=== PATIENT | female | born 1995 | race Caucasian/White ===

== ENCOUNTER 2016-08-13 21:23 | Emergency (ER) | payer OTHER ==
[2016-08-13 21:19] LABS: INFLUENZA A POS (NEG); INFLUENZA B NEG (NEG)
[~2016-08-13 21:23] MED LIST: ALBUTEROL17 GM INH; ALBUTEROL20 ml INH; AMOXICILLIN PO; AMOXICILLIN500 M1 PO; AMOXICILLIN875 MG PO; BENZONATATE PO; CLARITIN10 M1 PO; CLARITIN10 MG PO; DIMETAPP120 ML PO; FLONASE 0.05% N16 G1 INH; IBUPROFEN PO; LEXAPRO PO; NO MEDICATIONS; PHENERGAN/CODEIN5 ML DOB; PHENERGAN/CODEINE PO; PREDNISONE PO; PRENATA CHEWAB1 EACH PO; ROBAXIN500 MG PO; ROBITUSSIN A-C-S1 ML PO; ROBITUSSIN AC PO; ROBITUSSIN COU118 M6 PO; ROBITUSSIN-PE1 ML PO; SUDAFED30 M1 PO; TAMIFLU75 M1 PO; VOLTAREN75 MG PO; ZITHROMAX PO; ZITHROMAX1 G/PKT PO; ZOFRAN ODT4 MG PO; ZPAK; ZYRTEC; ZYRTEC5 M1 PO; ZYRTEC5 MG
== END 2016-08-13 21:37 | disposition home or self-care (01) ==
LOC: SED 21:23
PROVIDERS: Emergency Medicine
DX: J10.1 Influenza due to other identified influenza virus with other respiratory manifestations (principal); F17.200 Nicotine dependence, unspecified, uncomplicated
CPT/HCPCS: 87804; 99282

== ENCOUNTER 2016-11-02 20:09 | Emergency (ER) | payer OTHER ==
[2016-11-02 20:46] LABS: URINE SOURCE CLEAN CATCH
[2016-11-02 20:51] LABS: URINE APPEARANCE CLEAR; URINE BILIRUBIN NEG (NEG); URINE BLOOD NEG (NEG); URINE COLOR DK YELLOW; URINE GLUCOSE NEG (NORM); URINE KETONE NEG (NEG); URINE LEUKOCYTE ESTERASE NEG (NEG); URINE NITRATE NEG (NEG); URINE PH 5.5 (5-8); URINE PROTEIN NEG (NEG); URINE SPECIFIC GRAVITY >=1.030 (1.003-1.035); URINE UROBILINOGEN 0.2 MG/DL (NORM)
[2016-11-02 20:57] LABS: MICRO INDICATED? NO
[2016-11-05 21:27] LABS: CHLAMYDIA TRACH Not Detected (Not Detected); N GONOR Not Detected (Not Detected)
== END 2016-11-02 21:21 | disposition home or self-care (01) ==
LOC: SED 20:09
PROVIDERS: Physician Assistant
DX: N89.8 Other specified noninflammatory disorders of vagina (principal); G89.29 Other chronic pain; R10.2 Pelvic and perineal pain; F41.9 Anxiety disorder, unspecified; F32.9 Major depressive disorder, single episode, unspecified; F17.200 Nicotine dependence, unspecified, uncomplicated; Z79.899 Other long term (current) drug therapy
CPT/HCPCS: 81003; 84703; 87210; 87220; 87491; 87591; 87808; 87905; 99284

== ENCOUNTER 2016-12-14 09:13 | Emergency (ER) | payer OTHER ==
--- NOTE | ~2016-12-14 | CR72 ---
[facility]. [facility] A Service of [facility] & [facility] RADIOLOGY TEXT RESULTS PATIENT: GEORGETTE HUTTON LOCATION: SED : [birth year] UNIT #: [id number] AGE: [address]: Angel Mcgregor MD SEX: F ORDER DR: [id number] [address] [address] [id number] E MR#: [id number] Acc #: [id number] NAME: GEORGETTE HUTTON : 1995 SEX: F STUDY DATE/TIME: 12/14/2016 UNIT: SED ROOM: STUDY DESCRIPTION: CR Chest Single View Portable Attending Physician: Angel Mcgregor M.D. Ordering Physician: Angel Mcgregor M.D. MEDICAL IMAGING REPORT This report is preliminary unless electronic signature is present. EXAM Chest portable 12/14/2016 1203 hours HISTORY 21-year-old with cough and left-sided chest pain with headache today. COMPARISON 11/01/2014. FINDINGS Single upright portable view demonstrates normal cardiac, mediastinal and hilar contours. The lungs are clear. There are no effusions. IMPRESSION Slightly low lung volumes with large body habitus. No acute cardiopulmonary findings. Dictated by... Jayla Chavez M.D. THIS IS AN ELECTRONICALLY VERIFIED REPORT Jayla Chavez M.D. at 12/15/2016 9:48 AM ALESSANDRA/ol TD: 12/14/2016 22:12 JOB #: [id number] MEDICAL IMAGING REPORT Page 1 of 1
[2016-12-14 10:58] LABS: BASOPHIL# 0.1 X10e3 (0-0.3); BASOPHIL% 0.5 % (0-2.5); EOSINOPHIL# 0.3 X10e3 (0-0.7); EOSINOPHIL% 2.6 % (0.0-7.0); HEMATOCRIT 44.9 % (35.0-45.0); HEMOGLOBIN 15.4 gm/dL (12.0-16.0); LYMPHOCYTE# 2.2 X10e3 (1.0-3.5); LYMPHOCYTE% 17.8 % (17.0-45.0); MEAN CELL VOLUME 86.5 FL (83-96); MEAN CORPUSCULAR HEMOGLOBIN 29.5 PG (28-34); MEAN CORPUSCULAR HGB CONC 34.2 g/dL (30-36); MEAN PLATELET VOLUME 9.4 FL (6.5-11.5); MONOCYTE# 0.9 X10e3 (0-1.0); NEUTROPHIL# 9.1 X10e3 (1.5-7.1); NEUTROPHIL% 72.1 % (40-75); PLATELET COUNT 198 X10e3 (140-420); RED CELL DISTRIBUTION WIDTH 13.3 % (11.0-15.5); WHITE BLOOD COUNT 12.6 X10e3 (4.0-10.5)
[2016-12-14 11:00] LABS: URINE SOURCE CLEAN CATCH
[2016-12-14 11:01] LABS: INFLUENZA A NEG (NEG); INFLUENZA B NEG (NEG)
[2016-12-14 11:05] LABS: URINE APPEARANCE CLEAR; URINE BILIRUBIN NEG (NEG); URINE BLOOD NEG (NEG); URINE COLOR YELLOW; URINE GLUCOSE NEG (NORM); URINE KETONE NEG (NEG); URINE LEUKOCYTE ESTERASE TRACE (NEG); URINE NITRATE NEG (NEG); URINE PH 5.5 (5-8); URINE PROTEIN NEG (NEG); URINE SPECIFIC GRAVITY 1.025 (1.003-1.035); URINE UROBILINOGEN 0.2 MG/DL (NORM)
[2016-12-14 11:06] LABS: MICRO INDICATED? YES
[2016-12-14 11:22] LABS: CULTURE INDICATED? NO; URINE BACTERIA NEG (NEG); URINE RBC 0-2 /[HPF] (0-2); URINE WBC 0-2 /[HPF] (0-5)
[2016-12-14 11:26] LABS: ALBUMIN SERUM 4.5 g/dL (3.5-5.0); BILIRUBIN,TOTAL 0.5 mg/dL (0.2-2.0); BUN/CREATININE RATIO 11.42; CALCIUM SERUM 9.1 mg/dL (8.4-10.2); CREATININE SERUM 0.7 mg/dL (0.6-1.4); GLOM FILT RATE Estimated 124.7 mL/min (>60); POTASSIUM 3.8 mmol/L (3.5-5.1); PROTEIN TOTAL SERUM 7.7 g/dL (6.0-8.3)
[2016-12-14 11:30] LABS: DIFF IND NO
== END 2016-12-14 13:13 | disposition home or self-care (01) ==
LOC: SED 09:13
PROVIDERS: Emergency Medicine
DX: J40 Bronchitis, not specified as acute or chronic (principal); R10.9 Unspecified abdominal pain; R11.2 Nausea with vomiting, unspecified; R19.7 Diarrhea, unspecified; F17.210 Nicotine dependence, cigarettes, uncomplicated
CPT/HCPCS: 36415; 71010; 80053; 81003; 84703; 85025; 87651; 87804; 96360; 99284

== ENCOUNTER 2017-02-21 15:19 | Emergency (ER) | payer OTHER ==
[~2017-02-21] VITALS: Ht 167.6 cm; Wt 88.9 kg
--- NOTE | ~2017-02-21 | US134 ---
[facility] A Service of [facility] & [facility] RADIOLOGY TEXT RESULTS PATIENT: GEORGETTE HUTTON LOCATION: SED : [birth year] UNIT #: [id number] AGE: [address]: JAVIER HARPER SEX: F ORDER DR: [id number] [address] [address] [id number] E MR#: [id number] Acc #: [id number] NAME: GEORGETTE HUTTON : 1995 SEX: F STUDY DATE/TIME: 02/21/2017 20:16 UNIT: SED ROOM: STUDY DESCRIPTION: US Transvaginal Attending Physician: Javier Harper R.N. Ordering Physician: Darrne Sullivan M.D. Primary Care Physician: Primary Care Physician No MEDICAL IMAGING REPORT This report is preliminary unless electronic signature is present. EXAM Ultrasound pelvis 02/21/2017 HISTORY Pelvic pain for 3 weeks. No bleeding. Quantitative beta HCG 6892. FINDINGS Real-time ultrasonography of the pelvic structures performed. Transvaginal imaging utilized. Study is limited in the absence of transabdominal imaging. Study is poor quality overall. The uterus measures approximately 4.99 cm x 2.91 cm x 5.82 cm. It appears to be retroverted. The myometrium is unremarkable. There is an intrauterine present. Yolk sac and gestational sac seen. The gestational sac diameters suggest gestational age approximately 5 weeks 5 days. pole not identified at this time. There is no free fluid in the pelvis. The right ovary measures 3.89 cm x 2.73 cm x 2.23 cm. Arterial flow present. The left ovary measures 2.24 cm x 3.26 cm x 1.40 cm. Arterial flow present. IMPRESSION 1. Poor quality examination. See discussion above. There is a single intrauterine present. Gestational sac and yolk sac identified. On basis of gestational sac diameter, gestational age is approximately 5 weeks 5 days. This would suggest a date of delivery October 19, 2017. pole not yet identified. Correlation with follow up beta HCG and follow up obstetric ultrasound recommended. 2. Myometrium normal in appearance. 3. Bilateral ovaries normal in appearance. Arterial flow demonstrated in bilateral ovaries. 4. No abnormal fluid collections in the pelvis. [facility]. [facility] A Service of [facility] & [facility] RADIOLOGY TEXT RESULTS PATIENT: GEORGETTE HUTTON LOCATION: [facility] [place] : [birth year] UNIT #: [id number] AGE: [address]: JAVIER HARPER SEX: F ORDER DR: Dictated by... Kishan Holguin M.D. THIS IS AN ELECTRONICALLY VERIFIED REPORT Kishan Holguin M.D. at 02/23/2017 4:57 PM KAREN/alvin TD: 02/22/2017 14:03 JOB #: [id number] MEDICAL IMAGING REPORT Page 1 of 1
[2017-02-21 17:34] LABS: URINE SOURCE CLEAN CATCH
[2017-02-21 17:37] LABS: URINE APPEARANCE SL CLOUDY; URINE BILIRUBIN NEG (NEG); URINE BLOOD NEG (NEG); URINE COLOR YELLOW; URINE GLUCOSE NEG (NORM); URINE KETONE NEG (NEG); URINE LEUKOCYTE ESTERASE NEG (NEG); URINE NITRATE NEG (NEG); URINE PH 8.5 (5-8); URINE PROTEIN NEG (NEG); URINE SPECIFIC GRAVITY 1.015 (1.003-1.035); URINE UROBILINOGEN 0.2 MG/DL (NORM)
[2017-02-21 17:38] LABS: MICRO INDICATED? NO
[2017-02-23 20:38] LABS: CHLAMYDIA TRACH Not Detected (Not Detected); N GONOR Not Detected (Not Detected)
== END 2017-02-21 22:17 | disposition home or self-care (01) ==
LOC: SED 15:19
PROVIDERS: Emergency Medicine; Nurse Practitioner
DX: O20.0 Threatened abortion (principal); O23.511 Infections of cervix in pregnancy, first trimester; O99.341 Other mental disorders complicating pregnancy, first trimester; O99.331 Smoking (tobacco) complicating pregnancy, first trimester; F17.200 Nicotine dependence, unspecified, uncomplicated; F41.9 Anxiety disorder, unspecified; F32.9 Major depressive disorder, single episode, unspecified; Z3A.01 Less than 8 weeks gestation of pregnancy
CPT/HCPCS: 36415; 76830; 81003; 84702; 84703; 87210; 87491; 87591; 87808; 87905; 96372; 99284; J0696